=== PATIENT | female | born 1960 | race Caucasian/White ===

== ENCOUNTER → 2018-05-21 | Outpatient (CLI) | payer OTHER ==
[~2018-05-21] MED LIST: ASPIRIN LOW DOS81 MG PO; CALCIUM MAGNES1 EAC1 PO; DEXILANT60 MG PO; MULTIVITAMIN PO; NASONEX17 GM INH; POTASSIUM PO; PREVACID15 M2 PO; Z.0.HYDROCHLOROTH12. PO; Z.0.METOPROLOL TART2 PO; [UNRECOGNIZED DRUG - OTHER] PO
--- NOTE | 2018-06-01 08:16 | Diagnostic Imaging Report ---
#[id number] - MGSCRBIL #BILATERAL DIGITAL SCREENING MAMMOGRAM WITH CAD: 05/21/2018 CLINICAL: Routine screening. Comparison is made to exams dated: 03/15/2014 mammogram, 02/21/2014 mammogram and 02/04/2014 mammogram - [facility]. Current study contains 4 films. The tissue of both breasts is predominantly fatty. Current study was also evaluated with a Computer Aided Detection (CAD) system. There are benign intramammary nodes in the left breast. There also are post operative findings in the right breast with a scar present. No significant masses, calcifications, or other findings are seen in either breast. There has been no significant interval change. IMPRESSION: BENIGN There is no mammographic evidence of malignancy. A 1 year screening mammogram is recommended. The patient will be notified by letter of the results. Hamilton Malik Jr., D.O. cw/:05/31/2018 11:17:57 [employer] Fe[employer]: Gracy MAGALLANES(R)(M), [facility] letter sent: Compared to Prior B9 Mammogram BI-RADS: 2 Benign
== END ==
LOC: MAMMO 09:35
PROVIDERS: ATTEND Internal Medicine
DX: Z12.31 Encounter for screening mammogram for malignant neoplasm of breast (principal)
CPT/HCPCS: 77067

== ENCOUNTER → 2024-07-12 | Outpatient (REF) | payer OTHER | LOC: MAMMO 14:19 | PROVIDERS: ATTEND Family Medicine | DX: Z12.31 Encounter for screening mammogram for malignant neoplasm of breast (principal) | CPT/HCPCS: 77067 ==